=== PATIENT | male | born 1945 | race Caucasian/White ===

== ENCOUNTER 2018-11-09 11:03 | Observation (INO) ==
[~2018-11-09 11:03] MED LIST: CEFAZOLIN 1000MG 1,000 MG/7.5 ML SYR IV SCH; CEFAZOLIN 2000MG 2,000 MG/15 ML SYR IV SCH; LR 15ML/HR IV SCH; PATIENT'S ALLERGY INFO NEEDS ENTERED SCH
[2018-11-09 11:52] LABS: Mean Corpuscular Volume 96.3 fL (80-100); Platelet Count 182 K/uL (130-400); RDW Standard Deviation 45.5 fL (36.4-46.3); Red Blood Count 5.09 M/uL (4.7-6.1); White Blood Count 7.45 K/uL (4.8-10.8)
[2018-11-09 11:53] LABS: Mean Corpuscular Hgb Conc 34.7 g/dL (32-36)
[2018-11-09 12:01] LABS: INR 1.8 (0.9-1.1); Prothrombin Time 17.3 Seconds (9.0-12.0)
[2018-11-09 12:07] LABS: BUN Creatinine Ratio 24.4 (10-20); Blood Urea Nitrogen 41 mg/dl (7-18); Calcium 10.7 mg/dl (8.5-10.1); Carbon Dioxide 29 mmol/L (21-32); Chloride 104 mmol/L (98-107); Est GFR (Non-African American) 39.7; Glucose 197 mg/dl (70-99); Potassium 4.1 mmol/L (3.5-5.1); Sodium 138 mmol/L (136-145)
[2018-11-09] MEDS ORDERED: LIDOCAINE HCL 1% 20 ML VIAL ONE (12:36)
[2018-11-09] MEDS ORDERED: MIDAZOLAM HCL 5 MG/ML 1 ML VIAL ONE (12:36)
[2018-11-09] MEDS ORDERED: fentaNYL citrate 100 MCG/2 ML VIAL ONE (12:36)
[2018-11-09] MEDS ORDERED: BACITRACIN INJ 50,000 UNIT VIAL ONE (12:36)
[2018-11-09] MEDS ORDERED: BUPIVACAINE 0.25% 30 ML VIAL ONE (12:36)
[2018-11-09] MEDS ORDERED: raNITIdine HCl 25 MG/ML VIAL ONE (13:26)
[2018-11-09] MEDS ORDERED: methylPREDNISolone 125 MG/2 ML VIAL ONE (13:26)
[2018-11-09] MEDS ORDERED: DiphenhydrAMINE HCL 50 MG/ML VIAL ONE (13:26)
--- NOTE | 2018-11-09 14:42 | Pre Anesthesia Assessment ---
Date of Service November 09, 2018 Pre Sedation Assessment Vital Signs Temp Pulse Resp BP Pulse Ox 11/09/18 11:25 36.5 C 81 16 159/90 H 95 Cardiovascular RRR, no murmur, no edema + bradycardic + click Respiratory normal respiratory effort, lungs clear to auscultation Pre-Sedation Airway Assessment Smoking Status: Never smoker Hx Sleep Apnea: No Hx Difficult Intubation: No Short, Thick Neck: No Thyromental Distance: < 3.5 Finger Breadths Oral Cavity: + Dental Abnormalities Mallampati Class: II ASA: ASA3 Procedure Planning Contraindications for Sedation: none Current Medications Reviewed: Yes Notes The planned sedation has been discussed with the patient. Informed Consent was obtained. I have identified the patient, determined the appropriateness of sedation and have assessed the patient immediately prior to the procedure. All medicine(s) and interventions are by my order.
--- NOTE | 2018-11-09 14:42 | Post Anesthesia Assessment ---
Date of Service November 09, 2018 Post Sedation Assessment Vital Signs Temp Pulse Resp BP Pulse Ox 11/09/18 11:25 36.5 C 81 16 159/90 H 95 Recovery Score Activity: Moves 4 extremities Respiration: Deep Breath/Cough Circulation: +/-20% PreAnes Value Consciousness: Fully Awake Oxygen Saturation: > 92% On Room Air Discharge Sedation Level of Care: Fast Track Phase II Post Sedation Plan On clinical assessment, the patient appears to have tolerated the sedation without complications. Patient is recovering as anticipated. Patient will continue to be monitored by nursing and may be discharged when sedation discharge criteria are met per below protocol. Upon Completions of procedure and additional 15 minutes continue every 5 minute vital signs and the P.A.R. score; then discharge to a Phase I or Fast Track to Phase II per the following guidelines: * Discharge Patient to appropriate Phase II area if PAR is 8 or greater or return to pre- procedure baseline. The post - procedure orders will be as directed. * If PAR score is less than 8 or not return to pre-procedure baseline then patient will follow Phase I monitoring till PAR is reached for Phase II. The Phase I may be done in procedure room or may call to secure a Phase I area. * If naloxone or flumazenil are used for reversal, hold in Phase I for continued monitoring from when last reversal dose was given for a minimum of 60 minutes or longer pending the nurse and/or physician discretion of patient condition before discharge to Phase II. Please call the Sedation Physician to re-evaluate and complete post-note for discharge to Phase II area. Do NOT discharge from procedure sedation or Phase 1 until post- sedation evaluation note is complete by procedure /sedation MD Sedation Discharge Instructions to be given to the patient at discharge to home.
--- NOTE | 2018-11-09 14:44 | History & Physical Bridge Note ---
Date of Service November 09, 2018 History & Physical Bridge Note I have examined the patient, reviewed the History & Physical and in the interval since the performance of the History & Physical I have noted the following changes of clinical significance: pt with intermittent chb for ppm today consent obtained
--- NOTE | 2018-11-09 14:44 | Operative Report ---
Post Operative Report Pre & Post Diagnosis intermittent chb Operation Date: 11/09/18 13:00 <No data on this case meets the specified criteria> Procedure Operation Date: 11/09/18 13:00 Actual Procedures p Pacer with A/V Leads (Dual) - Abbie Lewis DO Surgeon Abbie Lewis, DO [place] none Estimated Blood Loss 20 Findings Consistent with Post-Op Diagnosis Specimens none Description of Procedure see official report I attest to the content of the Intraoperative Record and any orders documented therein. Any exceptions are noted below.
[2018-11-09] MEDS ORDERED: Heparin IV Standard *NO* Bolus IV SCH (14:47)
[2018-11-09] MEDS ORDERED: ACETAMINOPHEN 325 MG TAB PO PRN (14:47)
[2018-11-09] MEDS ORDERED: TRAMADOL HCL 50 MG TABLET PO PRN (14:52)
[2018-11-09] MEDS ORDERED: ZOLPIDEM TARTRATE 10 MG TAB PO PRN (14:52)
[2018-11-09] MEDS ORDERED: WARFARIN SOD 7.5 MG TAB PO ONE (14:55)
--- NOTE | 2018-11-09 15:01 | Discharge Summary ---
Date of Service November 09, 2018 Admission HPI pt admitted with intermittent chb for elective ppm Admission Exam Per Admitting Provider aaox3, NAD NC/AT, EOMI Supple No JVD Nrl S1/S2, No murmur CTA b/l no w/r/r soft nt/nd no LE edema b/l skin intact no focal deficits Principal Diagnosis Principal Diagnosis intermittent chb s/p dual chamber ppm Discharge Exam aaox3, NAD NC/AT, EOMI Supple No JVD Nrl S1/S2, No murmur CTA b/l no w/r/r soft nt/nd no LE edema b/l skin intact no focal deficits left pectoral incision intact, no hematoma mild ecchymosis ENMT Mallampati Class: II Respiratory normal respiratory effort, lungs clear to auscultation Cardiovascular RRR, no murmur, no edema Rate/Rhythm: + bradycardic Heart Sounds: + click Discharge Data Allergies Allergy/AdvReac Type Severity Reaction Status Date / Time Iodinated Contrast- Oral and Allergy Severe Difficulty Verified 11/09/18 11:49 IV Dye Breathing Procedures Performed Operation Date: 11/09/18 13:00 Actual Procedures p Pacer with A/V Leads (Dual) - Abbie Lewis DO Ordered Studies 11/09/18 13:00 EP Lab Images for PACS ONCE Hospital Course (1) Intermittent complete heart block: (1) Intermittent complete heart block: Rojas is a 73-year-old male with a past medical history of rheumatic heart disease and remote resultant mechanical mitral valve replacement performed in 1994. He had recently been found to have intermittent high-grade AV block as an outpatient and underwent implantation of a dual-chamber Medtronic permanent pacemaker yesterday 11/09/18. He was seen today, 11/10/18 in cardiology follow by Dr Joyce, in coverage of Dr Lewis. Device interrogation performed today reveals normal device function. He has undergone a chest x-ray which reveals appropriate lead position and no evidence of pneumothorax. He is on chronic anticoagulation due to the mechanical mitral valve and his INR was subtherapeutic yesterday prompting initiation of a heparin bridge overnight last night. Early this morning he developed a mild pocket hematoma which has since been addressed and has resolved. His heparin infusion was discontinued and his INR is acceptable today with noted reading of 2.4, with goal for his prosthesis in the range of 2.5-3.5. He is stable for discharge. Due to the development of pocket hematoma he is to go home with his pressure bandage in place and he is going to be seen in the device clinic at [facility] on Monday for reassessment. He is to continue his home Coumadin regimen which he tells me is 4 mg daily. His family is going to come and pick him up. Tylenol was recommended as needed for pain. His pain is well controlled at present. Nicolas Joyce DO Total Time Total Time Spent Total Time Spent (In Minutes): 30 Total Time Includes: Examination of the Patient, Discharge Planning, Medication Reconciliation and Other Discharge Plan Discharge Items Patient Disposition: Home - Self-Care Reason For Visit: Nonischemic Cardiomyopathy Discharge Diagnosis: INTERMITTENT CHB Condition: Good Discharge Goals: Improve function Activity: As commented below Activity Comment: Do not lift the left elbow over the left shoulder for 1 month Lifting: No more than 10 pounds Lifting Comment: do not lift more than 10 pounds with the left arm for 2 weeks Bathing: Keep incision dry Bathing Comment: can shower Saturday 11/11 Sexual Activity: After two weeks Driving/Machine Use: Resume 1 day after discharge Call non-emergency contact if: you have any medication questions Follow-up/Referrals: PCP,NO [Primary Care Provider] - Addtl Provider Instructions: PLEASE HAVE YOUR PACEMAKER SITE REASSESSED IN THE PACEMAKER CLINIC AT [facility] OFFICE ON 11/12/18, BETWEEN 9 AM, AND 12 PM. Keep current pressure dressing on until seen in the cardiology clinic in 2 days on 11/12/18 if you notice any swelling call my office immediately Prescriptions: New acetaminophen [Tylenol] 325 mg capsule 650 mg PO Q6H MDD 2 GRAMS PRN (Reason: pain) Qty: 30 RF: 0 Continue lisinopril 10 mg Tablet 10 mg PO DAILY RF: 0 gabapentin 600 mg Tablet 600 mg PO BID RF: 0 tizanidine 2 mg Tablet 2 mg PO Q8H PRN (Reason: Pain) RF: 0 tramadol 50 mg Tablet 50 mg PO Q8H PRN (Reason: Nasal Congestion) RF: 0 warfarin 4 mg Tablet 4 mg PO PM RF: 0 pramipexole [Mirapex] 0.5 mg Tablet 0.5 mg PO PM RF: 0 citalopram 20 mg Tablet 20 mg PO DAILY RF: 0 tamsulosin 0.4 mg Capsule 0.8 mg PO DAILY RF: 0 amlodipine 10 mg Tablet 10 mg PO DAILY RF: 0 carbidopa-levodopa 10-100 mg Tablet 1 tab PO BID RF: 0 nitroglycerin [Nitrostat] 0.4 mg Tablet, Sublingual See Label Instructions .ROUTE .COMPLEX PRN (Reason: pain) RF: 0 furosemide [Lasix] 20 mg Tablet 20 mg PO Q OTHER DAY RF: 0 zolpidem [Ambien] 10 mg Tablet 10 mg PO HS PRN (Reason: Sleep) RF: 0 finasteride 5 mg Tablet 5 mg PO DAILY RF: 0 Sinemet RF: 0 Stand-Alone Forms: [facility] Discharge Orders: Discharge Order (Routine); Ordered 11/10/18 Ordered By: Julio Cesar Joyce Admission Data Admit Date/Time: 11/09/18 13:39 Attending Provider: Abbie Lewis Admit Provider: Abbie Lewis Primary Care Provider: PCP,TRINH Service: Telemetry
[2018-11-09] MEDS ORDERED: HEPARIN STANDARD DEXTROSE 25,000 UNITS/500 ML IV SCH (15:46)
[2018-11-09] MEDS ORDERED: Nursing to Pharmacy Communication ONE (16:48)
[2018-11-09] MEDS: GABAPENTIN 600 MG TAB PO SCH (20:37)
[2018-11-09] MEDS: TIZANIDINE HCL 4 MG TABLET PO PRN (20:37)
[2018-11-09] MEDS: CARBIDOPA/LEVODOP 10/100MG TAB PO SCH (20:37)
[2018-11-09] MEDS ORDERED: PRAMIPEXOLE DIHYDROCHLO 0.5 MG TAB PO SCH (21:00)
[2018-11-09 22:44] LABS: Partial Thromboplastin Ratio 3.6
[2018-11-09 22:52] LABS: Partial Thromboplastin Time 98.8 Seconds (21.0-31.0)
[2018-11-09] MEDS: OXYCODONE/ACETAMINOPHEN 5mg/325mg TAB PO PRN (23:03)
--- NOTE | 2018-11-09 23:51 | Operative Report ---
DATE OF OPERATION: 11/09/2018 PREOPERATIVE DIAGNOSIS: Intermittent complete heart block. POSTOPERATIVE DIAGNOSIS: Intermittent complete heart block. PROCEDURE: Dual chamber rate responsive permanent pacemaker under fluoroscopic guidance. SURGEON: Abbie Lewis DO AUTOMATION CONTROLS EXPERT: None. ANESTHESIA: Monitored conscious sedation administered under my supervision by Lilliam Pedroza. Start time was 1332 end time 1436, a total of 4 mg of Versed, 100 mcg fentanyl. INTRAVENOUS FLUIDS: 40 mL ANTIBIOTICS: 1 g of Ancef. ADDITIONAL MEDICINES: Due to a contrast allergy and the possibility of getting contrast he got 50 mg of Zantac, 50 mg of Benadryl, and 125 mg of Solu-Medrol. BLOOD LOSS: Less than 20 mL URINE OUTPUT: Not applicable. SPECIMENS: None. FINDINGS: See below. DRAINS: None. INDICATIONS: This is a 73-year-old gentleman with past medical history of rheumatic heart disease, in which he underwent a mechanical mitral valve replacement in the past, hypertension, first degree AV block, chronic kidney disease stage III, obstructive sleep apnea, history of a TIA, chronic back pain, BPH. He had intermittent complete heart block on most recent monitor and was recommended dual chamber pacemaker. CONSENT: Consent was obtained prior to the patient going into the electrophysiology lab. The patient was informed of the risks, benefits, and alternative of the procedure. Risks include but not limited to sudden cardiac ; injury to the blood vessels, chamber of the heart or the lung; bleeding; and infection. DESCRIPTION OF THE PROCEDURE: The patient was brought into the electrophysiology lab in fasting state. Patient was connected to continuous electronic device monitor. Timeout was performed to ensure patient's identity and procedure. The patient was prepped and draped over the left ventricular size in normal surgical standard fashion. Monitored conscious sedation was given throughout the procedure for patient's comfort level. Ward precautions maintained throughout the procedure.. Ten mL of 1% lidocaine and then bupivacaine mixture were given in left deltopectoral groove. Incision was made in the left deltopectoral groove. Blunt dissection was performed down to identify the cephalic vein. Cephalic vein was identified and isolated using 0 silk ties. The vein was nicked with an #11 blade and a guidewire was inserted without any resistance. An 8-Bolivian sheath was inserted over the guidewire without any resistance. The dilator was removed and a second guidewire was inserted through the 8-Bolivian sheath to allow for retained venous access. The sheath was removed, flushed guidewire. Dilator reinserted over it and then it was reinserted over one guidewire. Dilator and guidewire were removed. The right ventricular pacing lead was then advanced into right ventricle and positioned into vertical apex under fluoroscopic guidance. There was adequate pacing and sensing thresholds. There was no diaphragmatic stimulation in high output pacing. The 8-Bolivian sheath was peeled away and lead was fixated pectoralis muscle using 0 silk ties. A second hydrophilic 8-Bolivian sheath was inserted over the retained guidewire without any resistance. Guidewire and dilator removed. The right atrial pacing lead was then advanced into right atrium and positioned in the atrial appendage under fluoroscopic guidance. There was adequate pacing and sensing thresholds. There was no diaphragmatic stimulation in high output pacing. The 8-Bolivian sheath was peeled away and lead was fixated to pectoralis muscle using 0 silk suture. An additional 10 mL of 1% lidocaine and bupivacaine mixture were given within the surgical area. Then using blunt dissection over the pectoralis muscle, a pacemaker pocket was created. There was some backbleeding from the cephalic vein access, so a pursestring using 2-[address] needle was placed around the vein site. The pocket was then flushed with copious amounts of bacitracin saline wash and inspected for hemostasis. The pulse generator was then attached to the leads, making sure that the pins were in appropriate position, passed set screws, and set screws were all tightened. The pulse generator was then placed in an antibiotic pouch and then placed in the pocket, making sure that the leads were lying flat beneath the device and a stay stitch using 0 silk suture was used to secure to this to pectoralis muscle. Dung stat was then placed in the pocket. The incision was then closed in 3-layer fashion using 2-0 Vicryl interrupted suture followed by 3-0 Vicryl interrupted suture, followed by 4-0 Monocryl running stitch, and Dermabond was applied. EQUIPMENT: 1. Pulse generator is a Joleen XT DR NEFTALI Townsend [id number], serial number [id number]. 2. Right atrial lead Medtronic 5076-52 cm, serial number [id number]. 3. Right ventricular lead, Medtronic 5076-58 cm, serial number [id number]. 4. Antibiotic pouch lot number [id number], reference number [id number]. INTRAOPERATIVE TESTIN. Right atrial lead: P waves 4.7 millivolts, impedance 544 ohms, threshold 1.5 volts at 3.2 milliamps. 2. Right ventricular lead: R-wave 15.7 millivolts, impedance 941 ohms, threshold 0.4 volts at 0.5 milliamps. FINAL MEASUREMENTS THROUGH THE DEVICE: 1. Right atrial lead: P waves 4.1 millivolts, impedance 471 ohms, threshold 0.5 volts at 0.4 milliseconds. 2. Right ventricular lead: R waves 20 millivolts, impedance 688 ohms, threshold 0.5 volts at 0.4 milliseconds. FINAL PARAMETERS: MVP 60/130, right atrial amplitude 3.5 volts, pulse width 0.4 milliseconds, sensitivity 0.3 millivolts. Right ventricular amplitude 3.5 volts, pulse width 0.4 milliseconds, sensitivity 0.9 millivolts. IMPRESSION: Vessel implantation of dual chamber rate responsive implantable cardiac rate responsive permanent pacemaker under fluoroscopic guidance secondary to intermittent complete heart block. PLAN: Monitor patient overnight, 12-lead ECG, chest x-ray. Pressure dressing is to stay on until tomorrow. We will start a heparin drip, no bolus given the fact that he has a mechanical mitral valve and his INR is 1.8. We will give him an extra higher dose of Coumadin today at 7.5. He did take 2 mg yesterday and he normally takes 4. Otherwise, continue his home medications. I will leave it up to his primary manager motor for starting any beta blockers. He is not to lift his left elbow or left shoulder for 1 month. He cannot lift more than 10 pounds with the left arm for 2 weeks. He can shower in 2 days. Let water run over the incision, do not scrub it. He should follow up in our [place] office for device and wound check as scheduled. I attest to the content of the Intraoperative Record and any orders documented therein. Any exceptions are noted below. CODY
[2018-11-10 06:22] LABS: Hematocrit (blood only) 41.8 % (42-52); Hemoglobin 14.2 g/dL (14.0-18.0); Immature Granulocytes # (auto) 0.03 K/uL (0.00-0.02); Immature Granulocytes % (auto) 0.3 %; Lymphocytes % (auto) 4.3 %; Mean Corpuscular Volume 94.8 fL (80-100); Mean Platelet Volume 11.4 fL (7.4-10.4); Monocytes # (auto) 0.54 K/uL (0.11-0.59); Monocytes % (auto) 4.6 %; Neutrophils % (auto) 90.8 %; Platelet Count 164 K/uL (130-400); RDW Coefficient of Variation 12.8 % (11.5-14.5); RDW Standard Deviation 44.6 fL (36.4-46.3); Red Blood Count 4.41 M/uL (4.7-6.1); White Blood Count 11.67 K/uL (4.8-10.8)
[2018-11-10 07:06] LABS: INR 2.4 (0.9-1.1); Partial Thromboplastin Ratio 2.7; Prothrombin Time 23.2 Seconds (9.0-12.0)
[2018-11-10 07:09] LABS: Partial Thromboplastin Time 72.9 Seconds (21.0-31.0)
[2018-11-10] MEDS: TIZANIDINE HCL 4 MG TABLET PO PRN (08:02)
[2018-11-10] MEDS: CARBIDOPA/LEVODOP 10/100MG TAB PO SCH (08:02)
[2018-11-10] MEDS: GABAPENTIN 600 MG TAB PO SCH (08:02)
[2018-11-10] MEDS ORDERED: CITALOPRAM 20 MG TAB PO SCH (09:00)
[2018-11-10] MEDS ORDERED: LISINOPRIL 10 MG TAB PO SCH (09:00)
[2018-11-10] MEDS ORDERED: AMLODIPINE BESYLATE 5 MG TAB PO SCH (09:00)
[2018-11-10] MEDS ORDERED: FUROSEMIDE 20 MG TAB PO SCH (09:00)
[2018-11-10] MEDS ORDERED: FINASTERIDE 5 MG TAB PO SCH (09:00)
[2018-11-10] MEDS ORDERED: TAMSULOSIN HCL 0.4 MG CAP PO SCH (09:00)
--- NOTE | 2018-11-10 09:08 | XRay Report ---
XR chest 2V routine HISTORY: 73 years-old Male POST IMPLANT status post placement of a left subclavian dual lead pacer COMPARISON: None available TECHNIQUE: PA and lateral views of the chest FINDINGS: Cardiac silhouette is mildly enlarged. Prior median sternotomy. Calcification the thoracic aortic arc h. Status post placement of a left subclavian pacer with leads overlying the expected locations of th e right atrium and right ventricle. No postprocedural pneumothorax identified. Subsegmental bibasilar opacities are suggestive of atelectasis. Lungs are mildly hypoinflated. Limited lateral view seconda ry to positioning of the patient's upper extremities. Degenerative changes are seen about the shoulde rs and spine. IMPRESSION: 1. Status post placement of a dual lead left subclavian pacer. No postprocedural pneumothorax identif ied. 2. Cardiomegaly without overt pulmonary edema. 3. Hypoinflation with subsegmental bibasilar atelectasis. The above report was generated using voice recognition software. It may contain grammatical, syntax o r spelling errors. Electronically signed by: Cristian Lee M.D. 11/10/2018 9:07 AM
--- NOTE | 2018-11-10 09:49 | Cardiology Progress Note ---
Date of Service November 10, 2018 Assessment & Plan (1) Intermittent complete heart block: Rojas is a 73-year-old male with a past medical history of rheumatic heart disease and remote resultant mechanical mitral valve replacement performed in 1994. He had recently been found to have intermittent high-grade AV block as an outpatient and underwent implantation of a dual-chamber Medtronic permanent pacemaker yesterday 11/09/18. Device interrogation performed today reveals normal device function. He has undergone a chest x-ray which reveals appropriate lead position and no evidence of pneumothorax. He is on chronic anticoagulation due to the mechanical mitral valve and his INR was subtherapeutic yesterday prompting initiation of a heparin bridge overnight last night. Early this morning he developed a mild pocket hematoma which has since been addressed and has resolved. His heparin infusion was discontinued and his INR is acceptable today with noted reading of 2.4, with goal for his prosthesis in the range of 2.5-3.5. He is stable for discharge. Due to the development of pocket hematoma he is to go home with his pressure bandage in place and he is going to be seen in the device clinic at [facility] on Monday for reassessment. He is to continue his home Coumadin regimen which he tells me is 4 mg daily. His family is going to come and pick him up. Tylenol was recommended as needed for pain. His pain is well controlled at present. Subjective Chief complaint: Follow-up permanent pacemaker Subjective: Patient feeling well. He is seen in cardiology follow-up today on post procedure day [address] Lewis. He tolerated insertion of dual-chamber Medtronic pacemaker well. Early this morning he was reaching across to get something off his bedside table, and overextended himself, and developed a mild left infraclavicular pocket hematoma. This was addressed in a rapid fashion by nursing. A firm pressure bandage was placed and then replaced a few hours later and per his nurse, the hematoma had resolved with the most recent pressure bandage was placed. The patient's hemoglobin had trended down a bit compared to yesterday, but it is stable. INR is at goal at 2.4. And his heparin bridge was discontinued early this morning. Telemetry reveals stable sinus rhythm and demand pacing. EKG performed this morning reveals sinus rhythm with atrial pacing. The device was interrogated by the Medtronic accounts receivable representative this morning. Stable lead thresholds were noted with normal pacemaker function. Overnight he was atrial paced 11.5% the time and ventricular paced 87.5% the time. Physical Exam 2 Vital Signs (Past 24 Hours): Last Vital Signs Temp 36.4 C L 11/10/18 06:59 Pulse 65 11/10/18 06:59 Resp 16 11/10/18 06:59 BP 152/75 H 11/10/18 06:59 Pulse Ox 93 11/10/18 06:59 Physical Exam: General: no acute distress and stated age Eyes: conjunctiva are pink and non-injected, sclera clear Neck: normal jugular venous pulse, no hepatojugular reflux Chest: normal shape and normal respiratory effort Lungs: clear to auscultation and percussion Cardiac Exam: - regular heart sounds, crisp prosthetic heart sounds noted no murmurs, rubs, or gallops, no jugular venous distention Left infraclavicular pacemaker noted with mild ecchymosis Abdomen: abdomen soft, non-tender, no abnormal masses and no hepatosplenomegaly Extremities: no edema and no cyanosis Neuro:awake, coversant, follows commands, no focal motor deficits Psych: appropriate affect and insight. Results & Data Laboratory Results Coagulation 11/09/18 11/09/18 11/10/18 Range/Units 11:42 22:07 05:47 PT 17.3 H 23.2 H (9.0-12.0) Seconds APTT 98.8 H* 72.9 H* (21.0-31.0) Seconds CBC 11/09/18 11/10/18 Range/Units 11:42 05:47 WBC 7.45 11.67 H (4.8-10.8) K/uL RBC 5.09 4.41 L (4.7-6.1) M/uL Hgb 17.0 14.2 (14.0-18.0) g/dL Hct 49.0 41.8 L (42-52) % Plt Count 182 164 (130-400) K/uL Neut # (Auto) 10.60 H (1.4-6.5) K/uL Lymph # (Auto) 0.50 L (1.2-3.4) K/uL [place] # (Auto) 0.54 (0.11-0.59) K/uL Eos # (Auto) 0.00 (0-0.5) K/uL Baso # (Auto) 0.00 (0-0.2) K/uL Comprehensive Metabolic Panel 11/09/18 Range/Units 11:42 Sodium 138 (136-145) mmol/L Potassium 4.1 (3.5-5.1) mmol/L Chloride 104 (98-107) mmol/L Carbon Dioxide 29 (21-32) mmol/L BUN 41 H (7-18) mg/dl Creatinine 1.67 H (0.6-1.4) mg/dl Glucose 197 H (70-99) mg/dl Calcium 10.7 H (8.5-10.1) mg/dl Intake and Output 11/09/18 11/10/18 11/10/18 22:59 06:59 14:59 Intake Total 987.5 / 987.5 207.5 / 207.5 Output Total 450 / 450 Balance 537.5 / 537.5 207.5 / 207.5 Intake: IV 167.5 / 167.5 7.5 / 7.5 HEPARIN SODIUM/DEXTROSE 25,000 167.5 / 167.5 7.5 / 7.5 units In 500 ml @ 1,100 UNITS/ HR 22 mls/hr IV .[id number] [facility] Rx #:[id number] Oral 820 / 820 200 / 200 Output: Urine 450 / 450 Other: Weight 68.8 kg Medications Administered Current Inpatient Medications Acetaminophen (Tylenol) 650 mg PO Q4H PRN PRN Reason: Pain or Fever Stop: 12/09/18 14:46 Last Admin: 11/09/18 19:38 Dose: 650 mg Amlodipine Besylate (Norvasc) 10 mg PO DAILY [facility] Stop: 12/10/18 08:59 Last Admin: 11/10/18 08:03 Dose: 10 mg Carbidopa/Levodopa (Sinement 10/100mg) 1 tab PO BID [facility] Stop: 12/09/18 20:59 Last Admin: 11/10/18 08:02 Dose: 1 tab Citalopram Hydrobromide (Celexa) 20 mg PO DAILY [facility] Stop: 12/10/18 08:59 Last Admin: 11/10/18 08:02 Dose: 20 mg Finasteride (Proscar) 5 mg PO DAILY [facility] Stop: 12/10/18 08:59 Last Admin: 11/10/18 08:02 Dose: 5 mg Furosemide (Lasix) 20 mg PO Q2D@0900 [facility] Stop: 12/10/18 08:59 Last Admin: 11/10/18 08:02 Dose: 20 mg Gabapentin (Neurontin) 600 mg PO BID [facility] Stop: 12/09/18 20:59 Last Admin: 11/10/18 08:02 Dose: 600 mg Lisinopril (Zestril) 10 mg PO DAILY [facility] Stop: 12/10/18 08:59 Last Admin: 11/10/18 08:03 Dose: 10 mg Oxycodone/Acetaminophen (Percocet 5mg/325mg) 1 - 2 tab PO Q6H PRN PRN Reason: Moderate-Severe Pain Stop: 11/23/18 14:46 Last Admin: 11/09/18 23:03 Dose: 1 tab Pramipexole Dihydrochloride (Mirapex) 0.5 mg PO PM [facility] Stop: 12/09/18 20:59 Last Admin: 11/09/18 20:37 Dose: 0.5 mg Tamsulosin HCl (Flomax) 0.8 mg PO DAILY [facility] Stop: 12/10/18 08:59 Last Admin: 11/10/18 08:03 Dose: 0.8 mg Tizanidine HCl (Zanaflex) 2 mg PO Q8H PRN PRN Reason: Pain Stop: 12/09/18 14:51 Last Admin: 11/10/18 08:02 Dose: 2 mg Tramadol HCl (Ultram) 50 mg PO Q8H PRN PRN Reason: Nasal Congestion Stop: 12/09/18 14:51 Last Admin: 11/10/18 03:33 Dose: 50 mg Zolpidem Tartrate (Ambien) 10 mg PO HS PRN PRN Reason: Sleep Stop: 12/09/18 14:51
[2018-11-10] MEDS: OXYCODONE/ACETAMINOPHEN 5mg/325mg TAB PO PRN (10:04)
== END 2018-11-10 12:38 | disposition home or self-care (01) ==
LOC: EP 11:03 → 2E 11:03